=== PATIENT | female | born 1985 | race African-American/Black ===

== ENCOUNTER 2016-06-22 23:51 | Emergency (ER) | payer OTHER ==
[~2016-06-22] VITALS: Ht 157.5 cm; Wt 89.0 kg
[2016-06-23] MEDS ORDERED: AMOX875T PO (00:06)
--- NOTE | 2016-06-23 00:06 | PD ---
HPI Chief Complaint: sinus pressure Time Seen by Provider: 00:02 Travel History International Travel<30 days: No Contact w/Intl Traveler<30days: No History of Present Illness HPI Patient comes in complaining of sinus pressure and pain ongoing for over 2 weeks. Patient reports pain mainly in left maxillary sinus but having pain throughout her facial sinuses. Patient states she is occasionally productive cough with greenish phlegm. Patient states she feels congested but is not blowing anything out her nose. Patient reports subjective fevers at night. Denies any nausea, vomiting, diarrhea, abdominal pain, shortness breath, or chest pain. Patient states she's taken multiple [id number] medications with minimal to no relief of her symptoms. Denies anything making it worse. PFSH Past Medical History Anemia: Yes Arthritis: No Asthma: Yes Autoimmune Disease: No Anxiety: No Depression: No Heart Rhythm Problems: No Cancer: Yes ("RBC cancer") Cardiovascular Problems: No High Cholesterol: No Chemotherapy: Yes (Finished October 2015) Chest Pain: No Congestive Heart Failure: No COPD: No Cerebrovascular Accident: No Diabetes: No Diminished Hearing: No Endocrine: No Gastrointestinal Disorders: Yes GERD: Yes Genitourinary: No Hiatal Hernia: No Immune Disorder: No Kidney Stones: No Musculoskeletal: No Neurologic: No Psychiatric: No Reproductive: No Respiratory: Yes (asthma) Migraines: No Radiation Therapy: No Renal Failure: No Seizures: No Sickle Cell Disease: No Sleep Apnea: No Thyroid Disease: No Ulcer: No : 2 Para: 1 Miscarriage: 1 : 0 Past Surgical History Abdominal Surgery: No AICD: No Arteriovenous Shunt: No Cardiac Surgery: No Ear Surgery: No Endocrine Surgery: No Eye Surgery: No Genitourinary Surgery: No Gynecologic Surgery: No Insulin Pump: No Joint Replacement: No Oral Surgery: No Pacemaker: No Thoracic Surgery: No Social History Alcohol Use: No Tobacco Use: No Substance Use: No Allergies-Medications (Allergen,Severity, Reaction): Coded Allergies: No Known Allergies (Verified , 06/23/16) Reported Meds & Prescriptions Reported Meds & Active Scripts Active Amoxicillin 875 Mg Tab 875 Mg PO BID 10 Days Review of Systems Except as stated in HPI: all other systems reviewed are Neg Physical Exam Narrative GENERAL: Well-developed, overly nourished, in no acute distress, and non-ill appearing. SKIN: Warm and dry. HEAD: Atraumatic. Normocephalic. EYES: Pupils equal and round. EOMI. No scleral icterus. No injection or drainage. ENT: No nasal bleeding or discharge. Mucous membranes pink and moist. Tympanic membranes pearly hastings bilaterally. Posterior pharynx nonerythematous without exudate. Uvula is midline. Patient reports tenderness throughout the facial sinuses. NECK: Trachea midline. No cervical lymphadenopathy. Supple. No nuclear rigidity. CARDIOVASCULAR: Regular rate and rhythm. No murmur appreciated. RESPIRATORY: No accessory muscle use. No respiratory distress. Clear to auscultation. Breath sounds equal bilaterally. MUSCULOSKELETAL: No obvious deformities. No clubbing. No cyanosis. No edema. Full range of motion. NEUROLOGICAL: Awake and alert. No obvious cranial nerve deficits. Motor grossly within normal limits. Normal speech. PSYCHIATRIC: Appropriate mood and affect; insight and judgment normal. Data Data Last Documented VS Vital Signs Date Time Temp Pulse Resp B/P Pulse Ox O2 Delivery O2 Flow Rate FiO2 06/23/16 00:29 98.4 79 14 130/83 98 MDM Medical Decision Making Medical Screen Exam Complete: Yes Emergency Medical Condition: Yes Differential Diagnosis Upper respiratory infection, sinusitis, viral syndrome, allergies, other Narrative Course Patient looks great, non-ill appearing. The patient is tolerating fluids and is well hydrated. Appears acute sinusitis. No clinical evidence by history or evaluation to suspect meningitis and/or sepsis. There was no evidence to suggest deep abscess or cavernous sinus involvement. I discussed with the patient, diagnosis, plan of care, medications and to follow up with the patient s primary physician. The patient was instructed to return if the worsens in anyway, especially if not tolerating fluids, increased sinus pain or swelling, worsening headache, persistent fever, difficulty swallowing or breathing, or as needed. The patient agreed with plan. Patient in no obvious distress upon re-evaluation. Patient was asked if they wanted to speak to my attending, which the patient did not wish to do at this time. Any questions/concerns in reference to patient diagnosis/condition discussed and clarified prior to patient's discharge. Reinforced sheer importance of close follow up with patient's primary physician or primary care clinic. Instructed patient to return to ED immediately, if symptoms return/ worsen. Pt showed understanding of above instructions. Further instructions and recommendations were detailed in discharge paperwork. Pt ambulated without difficulty out of ED at discharge. Diagnosis Primary Impression: Sinusitis Qualified Code: J32.9 - Sinusitis, unspecified chronicity, unspecified location Referrals: Daniel Holloway MD Patient Instructions: Sinusitis (ED) Additional Instructions: Follow-up with your primary care physician and/or ENT this week for reevaluation. Take all medication as prescribed. Return to the emergency department if symptoms get worse. Med/Other Pt SpecificInfo: Prescription(s) given Scripts Amoxicillin 875 Mg Ehu240 Mg PO BID 10 Days Ref 0 Prov:Georgina Savage MD 06/23/16 Disposition: 01 DISCHARGE HOME Condition: Stable Huber Johnson Jun 23, 2016 00:06
[2016-06-23 00:29] VITALS: BP 130/83; PULSE 79; RESP 14; TEMP 98.4; O2SAT 98
== END 2016-06-23 01:11 | disposition home or self-care (01) ==
LOC: NEPB 23:51
DX: J01.90 Acute sinusitis, unspecified (principal); R05 Cough; Z86.2 Personal history of diseases of the blood and blood-forming organs and certain disorders involving the immune mechanism; Z87.09 Personal history of other diseases of the respiratory system; Z87.19 Personal history of other diseases of the digestive system
CPT/HCPCS: 99283

== ENCOUNTER 2016-10-24 11:56 | Emergency (ER) | payer MEDICAID, OTHER ==
[~2016-10-24] VITALS: Ht 160 cm; Wt 88.5 kg
[~2016-10-24 11:56] MED LIST: AMOX875T PO
[2016-10-24 11:58] VITALS: BP 152/70; PULSE 90; RESP 20; TEMP 98.4; O2SAT 100
[2016-10-24] MEDS ORDERED: CEPH-460 PO (12:20)
--- NOTE | 2016-10-24 12:20 | PD ---
HPI Chief Complaint: Complaint Time Seen by Provider: 12:18 Travel History International Travel<30 days: No Contact w/Intl Traveler<30days: No Traveled to known affect area: No History of Present Illness HPI 31-year-old female presents to the emergency department for evaluation of urinary urgency, burning, and frequency worsening of the last 2 days. Patient believes she may have a UTI. She reports no vaginal discharge or bleeding. Uncertain if she is but believes she is not. Denies any fever or chills. Mild abdominal cramping. No other symptoms to report. PFSH Past Medical History Anemia: Yes Arthritis: No Asthma: Yes Autoimmune Disease: No Anxiety: No Depression: No Heart Rhythm Problems: No Cancer: Yes ("RBC cancer") Cardiovascular Problems: No High Cholesterol: No Chemotherapy: Yes (Finished October 2015) Chest Pain: No Congestive Heart Failure: No COPD: No Cerebrovascular Accident: No Diabetes: No Diminished Hearing: No Endocrine: No Gastrointestinal Disorders: Yes GERD: Yes Genitourinary: No Hiatal Hernia: No Immune Disorder: No Kidney Stones: No Musculoskeletal: No Neurologic: No Psychiatric: No Reproductive: No Respiratory: Yes (asthma) Migraines: No Radiation Therapy: No Renal Failure: No Seizures: No Sickle Cell Disease: No Sleep Apnea: No Thyroid Disease: No Ulcer: No Tetanus Vaccination: < 5 Years ?: Not : 2 Para: 1 Miscarriage: 1 : 0 Past Surgical History Surgical History: No Previous Surgery Abdominal Surgery: No AICD: No Arteriovenous Shunt: No Cardiac Surgery: No Ear Surgery: No Endocrine Surgery: No Eye Surgery: No Genitourinary Surgery: No Gynecologic Surgery: No Insulin Pump: No Joint Replacement: No Oral Surgery: No Pacemaker: No Thoracic Surgery: No Social History Alcohol Use: No Tobacco Use: No Substance Use: No Allergies-Medications (Allergen,Severity, Reaction): Coded Allergies: No Known Allergies (Verified , 10/24/16) Reported Meds & Prescriptions Reported Meds & Active Scripts Active Keflex (Cephalexin) 500 Mg Cap 500 Mg PO Q12H 7 Days Review of Systems Except as stated in HPI: all other systems reviewed are Neg Physical Exam Narrative GENERAL: Well-nourished, well-developed email patient in no acute distress SKIN: Focused skin assessment warm/dry. HEAD: Normocephalic. EYES: No scleral icterus. No injection or drainage. NECK: Supple, trachea midline. No JVD or lymphadenopathy. CARDIOVASCULAR: Regular rate and rhythm without murmurs, gallops, or rubs. RESPIRATORY: Breath sounds equal bilaterally. No accessory muscle use. GASTROINTESTINAL: Abdomen soft, non-tender, nondistended. No guarding. No rebound tenderness. MUSCULOSKELETAL: No cyanosis, or edema. BACK: Nontender without obvious deformity. No CVA tenderness. Data Data Last Documented VS Vital Signs Date Time Temp Pulse Resp B/P Pulse Ox O2 Delivery O2 Flow Rate FiO2 10/24/16 11:58 98.4 90 20 152/70 100 Room Air Orders Urinalysis - C+S If Indicated (10/24/16 12:12) Ed Urine Pregnancytest Poc (10/24/16 12:12) Urine Culture (10/24/16 12:14) Labs Laboratory Tests Test 10/24/16 12:14 Urine Color YELLOW Urine Turbidity CLOUDY Urine pH 6.5 Urine Specific [place] 1.024 Urine Protein 100 mg/dL Urine Glucose (UA) NEG mg/dL Urine Ketones NEG mg/dL Urine Occult Blood MOD Urine Nitrite NEG Urine Bilirubin NEG Urine Urobilinogen 2.0 MG/DL Urine Leukocyte Esterase LARGE Urine RBC 38 /hpf Urine WBC /hpf Urine WBC Clumps MOD Urine Squamous Epithelial 1 /hpf Cells Urine Bacteria FEW /hpf Urine Mucus FEW /lpf Microscopic Urinalysis Comment CULTURE INDICATED MDM Medical Decision Making Medical Screen Exam Complete: Yes Emergency Medical Condition: Yes Medical Record Reviewed: Yes Differential Diagnosis Cystitis versus vaginitis versus urethritis versus PID Narrative Course 31-year-old female presents to emergency department for evaluation of urinary symptoms. Patient denies any vaginal discharge or bleeding. Patient's symptoms are consistent with UTI. Urinalysis is sent. Urine is negative. Patient will be started on Keflex by mouth. She is encouraged to follow-up with primary care provider and return immediately with any acute worsening of symptoms. Diagnosis Primary Impression: Dysuria Referrals: Primary Care Physician Patient Instructions: Dysuria (ED), General Instructions Additional Instructions: Maintain adequate oral hydration Drink 100% cranberry juice. Not cocktail Follow-up with a primary care provider Return immediately with any acute worsening symptoms Med/Other Pt SpecificInfo: Prescription(s) given Scripts Cephalexin (Keflex)500 Mg [id number] Mg PO Q12H 7 Days Ref 0 Prov:Magi Gomez 10/24/16 Disposition: 01 DISCHARGE HOME Condition: Stable Magi Gomez Oct 24, 2016 12:20
[2016-10-24 12:28] LABS: BACTERIA, URINE FEW /hpf; BLOOD, URINE MOD (NEG); COMMENT (UR) CULTURE INDICATED; CULTURE IF INDICATED CULTURE INDICATED; GLUCOSE,URINE NEG (NEG); KETONE, URINE NEG (NEG); MUCUS URINE FEW /lpf (OCC); NITRITE,URINE NEG (NEG); PH, URINE 6.5 (5.0-8.5); SQUAMOUS EPITHELIAL CELL URINE 1 /hpf (0-5); URINE COLOR YELLOW (YELLW/STRAW)
== END 2016-10-24 12:45 | disposition home or self-care (01) ==
LOC: NEPK 11:56
DX: R30.0 Dysuria (principal); R39.15 Urgency of urination; J45.909 Unspecified asthma, uncomplicated; K21.9 Gastro-esophageal reflux disease without esophagitis; D64.9 Anemia, unspecified; Z79.899 Other long term (current) drug therapy
CPT/HCPCS: 81001; 84703; 87077; 87086; 87186; 99283

== ENCOUNTER 2016-11-19 17:16 | Inpatient (IN) | payer MEDICAID ==
[~2016-11-19] VITALS: Ht 160 cm; Wt 86.4 kg
[~2016-11-19 17:16] MED LIST changes: -AMOX875T PO; +CEPH-460 PO
[2016-11-19 17:17] VITALS: BP 152/72; PULSE 85; RESP 18; TEMP 98.9; O2SAT 100
--- NOTE | 2016-11-19 17:30 | PD ---
Physical Exam Time Seen by Provider: 17:28 Narrative 31yo F c/o vaginal bleeding x 3 weeks. +abd pain and cramping. Denies fever, vomiting. Britton lightheadedness, dizziness. Feels weak. Denies . Patient seen in triage. VS reviewed. Awaiting bed placement. Data Data Last Documented VS Vital Signs Date Time Temp Pulse Resp B/P Pulse Ox O2 Delivery O2 Flow Rate FiO2 11/19/16 17:17 98.9 85 18 152/72 100 Room Air Orders Urinalysis - C+S If Indicated (11/19/16 18:51) MDM Supervised Visit with VANESSA: Inge Rivera Nov 19, 2016 17:30
[2016-11-19 19:07] LABS: BLOOD, URINE MOD (NEG); GLUCOSE,URINE NEG (NEG); KETONE, URINE NEG (NEG); NITRITE,URINE NEG (NEG); URINE COLOR YELLOW (YELLW/STRAW)
[2016-11-19 19:08] LABS: COMMENT (UR) CULT NOT INDICATED; CULTURE IF INDICATED CULT NOT INDICATED
[2016-11-19 20:11] LABS: MEAN CORPUSCULAR HGB CONC 29.6 % (32.0-36.0)
--- NOTE | 2016-11-19 20:12 | PD ---
HPI . vaginal bleed x 3 weeks Chief Complaint: Motorcycle Delivery Driver Problem/Complaint Time Seen by Provider: 20:11 Travel History International Travel<30 days: No Contact w/Intl Traveler<30days: No Traveled to known affect area: No History of Present Illness HPI 31-year-old female here with complaints of vaginal bleeding for the past 3 weeks. Patient tells me that she's been going through 7 pads a day. She says her bleeding has not subsided. She does report that she was on control pills and recently stopped those 3 days ago. She tells me that when she once she started the control pill she was bleeding more than usual. She denies any prior history of this abnormal vaginal bleeding or fibroids. She denies any chance of . She tells me that she has primary care provider located on [facility], but does not recall name and does not have OB /HEALTH PROGRAM DIRECTOR. She reports getting control pills from the health department, but does not recall the name of them. PFSH Past Medical History Anemia: Yes Arthritis: No Asthma: Yes Autoimmune Disease: No Anxiety: No Depression: No Heart Rhythm Problems: No Cancer: Yes ("RBC cancer") Cardiovascular Problems: No High Cholesterol: No Chemotherapy: Yes (Finished October 2015) Chest Pain: No Congestive Heart Failure: No COPD: No Cerebrovascular Accident: No Diabetes: No Diminished Hearing: No Endocrine: No Gastrointestinal Disorders: Yes GERD: Yes Genitourinary: No Hiatal Hernia: No Immune Disorder: No Kidney Stones: No Musculoskeletal: No Neurologic: No Psychiatric: No Reproductive: No Respiratory: Yes (asthma) Migraines: No Radiation Therapy: No Renal Failure: No Seizures: No Sickle Cell Disease: No Sleep Apnea: No Thyroid Disease: No Ulcer: No ?: Not : 2 Para: 1 Miscarriage: 1 : 0 Past Surgical History Abdominal Surgery: No AICD: No Arteriovenous Shunt: No Cardiac Surgery: No Ear Surgery: No Endocrine Surgery: No Eye Surgery: No Genitourinary Surgery: No Gynecologic Surgery: No Insulin Pump: No Joint Replacement: No Oral Surgery: No Pacemaker: No Thoracic Surgery: No Social History Alcohol Use: No Tobacco Use: No Substance Use: No Allergies-Medications (Allergen,Severity, Reaction): Coded Allergies: No Known Allergies (Verified , 11/19/16) Reported Meds & Prescriptions Reported Meds & Active Scripts Active Review of Systems General / Constitutional: No: Fever Eyes: No: Visual changes HENT: No: Headaches Cardiovascular: No: Chest Pain or Discomfort Respiratory: No: Shortness of Breath Gastrointestinal: No: Abdominal Pain Genitourinary: Positive: Pelvic Pain, Menorrhagia, Vaginal Bleeding, No: Dysuria Musculoskeletal: No: Pain Skin: No Rash Neurologic: No: Weakness Psychiatric: No: Depression Endocrine: No: Polydipsia Hematologic/Lymphatic: No: Easy Bruising Physical Exam Narrative GENERAL: AAO x 3, no acute distress, Well-nourished, well-developed patient. SKIN: Warm and dry. No visible rashes or bruising. Slight pallor to the palms of the hand HEAD: Normocephalic and atraumatic. EYES: No scleral icterus. No injection or drainage. EOM intact, PERRLA, pink conjunctiva bilaterally ENT: No nasal drainage noted. Mucous membranes pink. Airway patent. NECK: Supple, trachea midline. No JVD. No lymphadenopathy CARDIOVASCULAR: Regular rate and rhythm without murmurs, gallops, or rubs. RESPIRATORY: Breath sounds equal bilaterally. No accessory muscle use. No rhonchi or rales. GASTROINTESTINAL: Abdomen soft, non-tender, nondistended. PELVIC: Allison BELL present: + blooding in vaginal canal no vaginal laceration, cervical mass or gross abn. small clot at cervical os. EXTREMITIES: No cyanosis or edema. BACK: No obvious deformity. No CVA tenderness. NEURO: CN II-12 intact, home worker strength normal b/l, UE and LE 5/5, no focal deficits PSYCH: AAO x 3, normal affect. Data Data Last Documented VS Vital Signs Date Time Temp Pulse Resp B/P Pulse Ox O2 Delivery O2 Flow Rate FiO2 11/19/16 17:17 98.9 85 18 152/72 100 Room Air Orders Urinalysis - C+S If Indicated (11/19/16 18:51) Complete Blood Count With Diff (11/19/16 20:10) Basic Metabolic Panel (Bmp) (11/19/16 20:10) Ed Urine Pregnancytest Poc (11/19/16 20:10) Type And Screen (11/19/16 22:06) Red Blood Cells (Rbc) (11/19/16 22:06) Blood Product Administration .UPON TRANSFUSION (11/19/16 22:06) Sodium Chlor 0.9% 250 Ml Inj (Ns 250 Ml (11/19/16 22:15) Vital Signs (Adult) Q4H (11/19/16 22:29) Activity Oob Ad Lily (11/19/16 22:29) Roller Turner / Telemetry .CONTINUOUS (11/19/16 22:29) Diet Heart Healthy (11/20/16 Breakfast) Sodium Chloride 0.9% Flush (Ns Flush) (11/19/16 22:30) Sodium Chloride 0.9% Flush (Ns Flush) (11/20/16 09:00) Case Management Consult (11/19/16 22:29) Naloxone Inj (Narcan Inj) (11/19/16 22:30) Admit Order (Ed Use Only) (11/19/16 22:30) Labs Laboratory Tests Test 11/19/16 11/19/16 11/19/16 18:50 21:25 22:21 Urine Color YELLOW Urine Turbidity CLEAR Urine pH 6.0 Urine Specific [place] 1.014 Urine Protein 30 mg/dL Urine Glucose (UA) NEG mg/dL Urine Ketones NEG mg/dL Urine Occult Blood MOD Urine Nitrite NEG Urine Bilirubin NEG Urine Urobilinogen LESS THAN 2.0 MG/DL Urine Leukocyte Esterase SMALL Urine RBC /hpf Urine WBC 4 /hpf Urine Amorphous Sediment RARE Microscopic Urinalysis Comment CULT NOT INDICATED White Blood Count 12.5 TH/MM3 Red Blood Count 3.16 MIL/MM3 Hemoglobin 5.6 GM/DL Hematocrit 18.9 % Mean Corpuscular Volume 59.8 FL Mean Corpuscular Hemoglobin 17.7 PG Mean Corpuscular Hemoglobin 29.6 % Concent Red Cell Distribution Width 19.0 % Platelet Count 477 TH/MM3 Mean Platelet Volume 8.1 FL Neutrophils (%) (Auto) 64.8 % Lymphocytes (%) (Auto) 27.7 % Monocytes (%) (Auto) 6.0 % Eosinophils (%) (Auto) 0.6 % Basophils (%) (Auto) 0.9 % Neutrophils # (Auto) 8.1 TH/MM3 Lymphocytes # (Auto) 3.5 TH/MM3 Monocytes # (Auto) 0.7 TH/MM3 Eosinophils # (Auto) 0.1 TH/MM3 Basophils # (Auto) 0.1 TH/MM3 CBC Comment AUTO DIFF Differential Comment AUTO DIFF CONFIRMED Platelet Estimate HIGH Platelet Morphology Comment NORMAL Ovalocytes 1+ Stomatocytes 1+ Sodium Level 137 MEQ/L Potassium Level 3.5 MEQ/L Chloride Level 105 MEQ/L Carbon Dioxide Level 26.8 MEQ/L Anion Gap 5 MEQ/L Blood Urea Nitrogen 9 MG/DL Creatinine 0.75 MG/DL Estimat Glomerular Filtration 108 ML/MIN Rate Random Glucose 75 MG/DL Calcium Level 7.9 MG/DL Blood Type B POSITIVE Antibody Screen NEGATIVE Crossmatch Leukocyte-Reduced Red Blood Cells Blood Bank Comment MDM Medical Decision Making Medical Screen Exam Complete: Yes Emergency Medical Condition: Yes Medical Record Reviewed: Yes Differential Diagnosis Menorrhagia, iron deficiency anemia, dysfunctional uterine bleeding, Narrative Course 31-year-old female here with complaints of heavy menstrual cycle. There are no gross abnormalities on examination, except for some slight pallor of the palms of the hands. Labs have been ordered. She has no chest pain, shortness of breath or fatigue. Her last hemoglobin in the computer was dated December 2015 and was at 9.8. Per old she did require transfusion of blood products in the past as well as iron infusion. She has had heavy menses in the past as well. Case has been discussed with attending Dr. Lyles, who will determine patient's disposition. Scripts Norgestimate-Ethinyl Estradiol (Ortho-Cyclen)0.25-35 mg-Mcg Tab1 Tab PO DAILY # 1 PACK Ref 3 Prov:Shanna Deleon MD, R3 11/20/16 Condition: Stable Citlali Sanchez Nov 19, 2016 20:12
[2016-11-19 21:45] LABS: AUTOMATED NEUTROPHIL # 8.1 TH/MM3 (1.8-7.7); BASOPHIL # 0.1 TH/MM3 (0-0.2); BASOPHIL % 0.9 % (0.0-2.0); EOSINOPHIL # 0.1 TH/MM3 (0-0.4); EOSINOPHIL % 0.6 % (0.0-4.0); LYMPH % 27.7 % (9.0-44.0); LYMPHOCYTE # 3.5 TH/MM3 (1.0-4.8); MEAN CELL VOLUME 59.8 FL (80.0-100.0); MEAN CORPUSCULAR HEMOGLOBIN 17.7 PG (27.0-34.0); NEUT % 64.8 % (16.0-70.0); PLATELET COUNT 477 TH/MM3 (150-450); RED BLOOD COUNT 3.16 MIL/MM3 (4.00-5.30); WHITE BLOOD COUNT 12.5 TH/MM3 (4.0-11.0)
[2016-11-19 21:59] LABS: HEMO FLAGS AUTO DIFF
[2016-11-19 22:00] LABS: HEMATOCRIT 18.9 % (35.0-46.0)
[2016-11-19 22:02] LABS: BICARBONATE 26.8 MEQ/L (21.0-32.0); POTASSIUM 3.5 MEQ/L (3.5-5.1)
[2016-11-19] MEDS ORDERED: SODIUM CHLOR 0.9% 250 ML INJ 250 ML IV ONE (22:15)
[2016-11-19 22:22] LABS: OVALOCYTES 1+ (NORMAL); PLATELET ESTIMATE SMEAR HIGH (NORMAL); PLATELET MORPHOLOGY NORMAL (NORMAL); SCAN/DIFF AUTO DIFF CONFIRMED; STOMATOCYTES 1+ (NORMAL)
[2016-11-19] MEDS ORDERED: NALOXONE HCL 0.4 MG/ML AMP IV PRN (22:30)
[2016-11-19] MEDS ORDERED: SODIUM CHLORIDE 0.9% FLUSH 10 ML FLUSH IV FLUSH PRN (22:30)
--- NOTE | 2016-11-19 22:30 | PD ---
Data Data Last Documented VS Vital Signs Date Time Temp Pulse Resp B/P Pulse Ox O2 Delivery O2 Flow Rate FiO2 11/19/16 17:17 98.9 85 18 152/72 100 Room Air Orders Urinalysis - C+S If Indicated (11/19/16 18:51) Complete Blood Count With Diff (11/19/16 20:10) Basic Metabolic Panel (Bmp) (11/19/16 20:10) Ed Urine Pregnancytest Poc (11/19/16 20:10) Type And Screen (11/19/16 22:06) Red Blood Cells (Rbc) (11/19/16 22:06) Blood Product Administration .UPON TRANSFUSION (11/19/16 22:06) Sodium Chlor 0.9% 250 Ml Inj (Ns 250 Ml (11/19/16 22:15) Labs Laboratory Tests Test 11/19/16 11/19/16 18:50 21:25 Urine Color YELLOW Urine Turbidity CLEAR Urine pH 6.0 Urine Specific [place] 1.014 Urine Protein 30 mg/dL Urine Glucose (UA) NEG mg/dL Urine Ketones NEG mg/dL Urine Occult Blood MOD Urine Nitrite NEG Urine Bilirubin NEG Urine Urobilinogen LESS THAN 2.0 MG/DL Urine Leukocyte Esterase SMALL Urine RBC /hpf Urine WBC 4 /hpf Urine Amorphous Sediment RARE Microscopic Urinalysis Comment CULT NOT INDICATED White Blood Count 12.5 TH/MM3 Red Blood Count 3.16 MIL/MM3 Hemoglobin 5.6 GM/DL Hematocrit 18.9 % Mean Corpuscular Volume 59.8 FL Mean Corpuscular Hemoglobin 17.7 PG Mean Corpuscular Hemoglobin 29.6 % Concent Red Cell Distribution Width 19.0 % Platelet Count 477 TH/MM3 Mean Platelet Volume 8.1 FL Neutrophils (%) (Auto) 64.8 % Lymphocytes (%) (Auto) 27.7 % Monocytes (%) (Auto) 6.0 % Eosinophils (%) (Auto) 0.6 % Basophils (%) (Auto) 0.9 % Neutrophils # (Auto) 8.1 TH/MM3 Lymphocytes # (Auto) 3.5 TH/MM3 Monocytes # (Auto) 0.7 TH/MM3 Eosinophils # (Auto) 0.1 TH/MM3 Basophils # (Auto) 0.1 TH/MM3 CBC Comment AUTO DIFF Differential Comment AUTO DIFF CONFIRMED Platelet Estimate HIGH Platelet Morphology Comment NORMAL Ovalocytes 1+ Stomatocytes 1+ Sodium Level 137 MEQ/L Potassium Level 3.5 MEQ/L Chloride Level 105 MEQ/L Carbon Dioxide Level 26.8 MEQ/L Anion Gap 5 MEQ/L Blood Urea Nitrogen 9 MG/DL Creatinine 0.75 MG/DL Estimat Glomerular Filtration 108 ML/MIN Rate Random Glucose 75 MG/DL Calcium Level 7.9 MG/DL MDM Supervised Visit with VANESSA: Yes Narrative Course I, Dr. Lyles, have reviewed the advance practice practitioner's documentation and am in agreement, met with the patient face to face, made the diagnosis, and the medical decision making was done by me. See her note for further details. Briefly this is a 31-year-old female with history of myeloma in remission followed by Stacey, here for evaluation of heavy vaginal bleeding for the last 3 weeks. Patient was initially evaluated by my nurse practitioner Citlali Sanchez who performed pelvic exam and noticed a moderate amount of blood in vaginal vault coming from the cervical os. No intravaginal lacerations. No cervical masses. Patient is hemodynamically stable. She states that she felt tired yesterday. She is denying chest pain, shortness of breath, or lightheadedness today. She was made aware of her H&H of 5.6/18. Stool is heme negative and brown. She will be given 2 units of PRBCs I will be admitted for further treatment and evaluation of anemia and menorrhagia. Case discussed with hospitalist Dr. Wild who will admit the patient to her service. Diagnosis Primary Impression: Anemia Qualified Code: D64.9 - Anemia, unspecified type Additional Impression: Menorrhagia Qualified Code: N92.1 - Menorrhagia with irregular cycle Admitting Information Admitting Physician Requests: Admit Brice Lyles MD Nov 19, 2016 22:30
--- NOTE | 2016-11-19 22:52 | HHI.HP ---
[facility] Service [facility] Primary Care Physician No Primary Care Physician Admission Diagnosis anemia, menorrhagia Diagnoses: Travel History International Travel<30 Days: No Contact w/Intl Traveler <30 Da: No Traveled to Known Affected Are: No History of Present Illness short of breath but has asthma too very tired bleeding 3 weeks straight ususally 2x a month, but only 7 days each time cant get out of bed saturday no chest pain no palpitations has severe headaches white foam throwing up haven not been able to eat, literally been sleeping no black stool, no red color stool no constipation Review of Systems Except as stated in HPI: all other systems reviewed are Neg Past Family Social History Past Medical History asthma multiple myeloma? - had 6 rounds of chemo, finished august last year, was told cancer free Past Surgical History none Allergies: Coded Allergies: No Known Allergies (Verified , 11/19/16) Family History grandma both sides- diabetes maternal grandma- neck tumor - not sure if cancer; htn Social History denies smoking/ alcohol abuse/ drug abuse Physical Exam Vital Signs Vital Signs Date Time Temp Pulse Resp B/P Pulse Ox O2 Delivery O2 Flow Rate FiO2 11/19/16 17:17 98.9 85 18 152/72 100 Room Air Physical Exam GENERAL: This is a well-nourished, well-developed patient, in no apparent distress. SKIN: No rashes, ecchymoses or lesions. Cool and dry. HEAD: Atraumatic. Normocephalic. No temporal or scalp tenderness. EYES: Pupils equal round and reactive. Extraocular motions intact. No scleral icterus. No injection or drainage. ENT: Nose without bleeding, purulent drainage or septal hematoma. Throat without erythema, tonsillar hypertrophy or exudate. Uvula midline. Airway patent. NECK: Trachea midline. No JVD or lymphadenopathy. Supple, nontender, no meningeal signs. CARDIOVASCULAR: Regular rate and rhythm without murmurs, gallops, or rubs. RESPIRATORY: Clear to auscultation. Breath sounds equal bilaterally. No wheezes , rales, or rhonchi. GASTROINTESTINAL: Abdomen soft, non-tender, nondistended. No hepato-splenomegaly , or palpable masses. No guarding. MUSCULOSKELETAL: Extremities without clubbing, cyanosis, or edema. No joint tenderness, effusion, or edema noted. No calf tenderness. Negative Homans sign bilaterally. NEUROLOGICAL: Awake and alert. Cranial nerves II through XII intact. Motor and sensory grossly within normal limits. Five out of 5 muscle strength in all muscle groups. Normal speech. Laboratory Laboratory Tests Test 11/19/16 11/19/16 18:50 21:25 Urine Color YELLOW Urine Turbidity CLEAR Urine pH 6.0 Urine Specific [place] 1.014 Urine Protein 30 Urine Glucose (UA) NEG Urine Ketones NEG Urine Occult Blood MOD Urine Nitrite NEG Urine Bilirubin NEG Urine Urobilinogen LESS THAN 2.0 Urine Leukocyte Esterase SMALL Urine RBC Urine WBC 4 Urine Amorphous Sediment RARE Microscopic Urinalysis Comment CULT NOT INDICATED White Blood Count 12.5 Red Blood Count 3.16 Hemoglobin 5.6 Hematocrit 18.9 Mean Corpuscular Volume 59.8 Mean Corpuscular Hemoglobin 17.7 Mean Corpuscular Hemoglobin 29.6 Concent Red Cell Distribution Width 19.0 Platelet Count 477 Mean Platelet Volume 8.1 Neutrophils (%) (Auto) 64.8 Lymphocytes (%) (Auto) 27.7 Monocytes (%) (Auto) 6.0 Eosinophils (%) (Auto) 0.6 Basophils (%) (Auto) 0.9 Neutrophils # (Auto) 8.1 Lymphocytes # (Auto) 3.5 Monocytes # (Auto) 0.7 Eosinophils # (Auto) 0.1 Basophils # (Auto) 0.1 CBC Comment AUTO DIFF Differential Comment AUTO DIFF CONFIRMED Platelet Estimate HIGH Platelet Morphology Comment NORMAL Ovalocytes 1+ Stomatocytes 1+ Sodium Level 137 Potassium Level 3.5 Chloride Level 105 Carbon Dioxide Level 26.8 Anion Gap 5 Blood Urea Nitrogen 9 Creatinine 0.75 Estimat Glomerular Filtration 108 Rate Random Glucose 75 Calcium Level 7.9 Result Diagram: 11/19/16212411/19/162124 Assessment and Plan Assessment and Plan Impression: Dysfunctional uterine bleeding Symptomatic anemiasecondary to acute blood loss Acute blood loss anemia Plan: 2 units of PRBC transfusion. CHRONIC MANAGER consult. We'll follow CBC and repeat. DVT prophylaxiswith SCD. Discussed Condition With Patient, ER physician Physician Certification 2 Midnight Certification Type: Admission for Inpatient Services Order for Inpatient Services The services are ordered in accordance with Medicare regulations or non- Medicare payer requirements, as applicable. In the case of services not specified as inpatient-only, they are appropriately provided as inpatient services in accordance with the 2-midnight benchmark. Estimated LOS (days): 2 days is the estimated time the patient will need to remain in the hospital, assuming treatment plan goals are met and no additional complications. Post-Hospital Plan: Home Rik Wild MD Nov 19, 2016 22:52
[2016-11-20] VITALS (11 sets, daily range): BP systolic 116–179; BP diastolic 59–90; PULSE 74–105; RESP 16–19; TEMP 96.7–99.9; O2SAT 98–100
--- NOTE | 2016-11-20 00:35 | PD.CONS ---
HPI Chief Complaint Feeling weakness during fatigue Date Seen: Nov 20, 2016 Travel History International Travel<30 Days: No Contact w/Intl Traveler<30Days: No Known Affected Area: No History of Present Illness HPI Patient is 31-year-old black female para 1 whose and bleeding for 3 weeks vaginally. She states that her menses just started what was supposed to be just never stopped kept Going. She try to start control pills about 3 or 4 days and this bleeding they didn't help and she said it made it worse she bled heavier, she's been having large blood clots and heavy bleeding tonight is bleeding has slowed down somewhat. She states that she usually has very heavy periods and that they are irregular, in 2013 she was admitted for the same problem heavy bleeding received blood transfusion. Her test is negative tonight. And when asked about the she said " yes and no' if she wanted to get again Para: 1 : 1 History Past Medical History Narrative Medical History of abnormal periods and dysfunctional bleeding Obstetric History Obstetric History One vaginal delivery 17 years ago Social History Alcohol Use: No Tobacco Use: No Substance Abuse: No Allergies-Medications (Allergen,Severity, Reaction): Coded Allergies: No Known Allergies (Verified , 11/19/16) Home Meds Discontinued Scripts Cephalexin (Keflex)500 Mg Tdi620 Mg PO Q12H 7 Days Ref 0 Prov:Magi Gomez 10/24/16 Review of Systems General / Constitutional: No: Fever, Weight Gain, Chills, Other Eyes: No: Diploplia, Blurred Vision, Visual changes, Pain, Photophobia HENT: No: Headaches, Vertigo, Lightheadedness Cardiovascular: No: Irregular Rhythm, Chest Pain or Discomfort, Palpitations, Tachycardia, Syncope, Varicosities, Edema, Cyanosis Respiratory: No: Cough, Short of Breath, Other Gastrointestinal: No: Nausea, Vomiting, Diarrhea Genitourinary: Vaginal Bleeding, No: Decreased Urinary Output, Oliguria Musculoskeletal: No: Limited ROM, Weakness, Cramping, Edema, Pain Skin: No Rash, No Itching, No Dryness, No Lumps, No Change in Pigmentation, No Change in Nails, No Alopecia, No Lesions Neurologic: No: Weakness, Dizziness, Syncope, Focal Abnormalities, Coordination Problem, Headache, Slurred Speech, Seizures Psychiatric: No: Depression, Suicidal Ideations, Homicidal Ideation Endocrine: No: Heat Intolerance, Cold Intolerance, Polydipsia, Polyuria, Other Physical Exam Vital Signs Date Time Temp Pulse Resp B/P Pulse Ox O2 Delivery O2 Flow Rate FiO2 11/20/16 00:15 98.9 105 18 163/90 100 Room Air 11/19/16 17:17 98.9 85 18 152/72 100 Room Air Narrative GENERAL: Well-nourished, well-developed patient. SKIN: Warm and dry. HEAD: Normocephalic and atraumatic. EYES: No scleral icterus. No injection or drainage. ENT: No nasal drainage noted. Mucous membranes pink. Airway patent. NECK: Supple, trachea midline. No JVD. CARDIOVASCULAR: Regular rate and rhythm without murmurs, gallops, or rubs. RESPIRATORY: Breath sounds equal bilaterally. No accessory muscle use. BREASTS: Bilateral exam showed no masses , no retractions, no nipple discharge. ABDOMEN/GI: Abdomen soft, non-tender, bowel sounds present, no rebound, no guarding GENITOURINARY: External Genitalia: intact and normal in appearance lite to moderate amount of blood in the vaginal vault and the on the perineum. No active bleeding Cervix: [-Closed] Uterus is retroflexed globular but minimally enlarged no adnexal masses Rectal exam deferred ] EXTREMITIES: No cyanosis or edema. BACK: Nontender without obvious deformity. No CVA tenderness. NEUROLOGICAL: Awake and alert. Motor and sensory grossly within normal limits. Five out of 5 muscle strength in all muscle groups. Normal speech. Data Data Orders Urinalysis - C+S If Indicated (11/19/16 18:51) Complete Blood Count With Diff (11/19/16 20:10) Basic Metabolic Panel (Bmp) (11/19/16 20:10) Ed Urine Pregnancytest Poc (11/19/16 20:10) Type And Screen (11/19/16 22:06) Red Blood Cells (Rbc) (11/19/16 22:06) Blood Product Administration .UPON TRANSFUSION (11/19/16 22:06) Sodium Chlor 0.9% 250 Ml Inj (Ns 250 Ml (11/19/16 22:15) Vital Signs (Adult) Q4H (11/19/16 22:29) Activity Oob Ad Lily (11/19/16 22:29) Building Stonecutter / Telemetry .CONTINUOUS (11/19/16 22:29) Diet Heart Healthy (11/20/16 Breakfast) Sodium Chloride 0.9% Flush (Ns Flush) (11/19/16 22:30) Sodium Chloride 0.9% Flush (Ns Flush) (11/20/16 09:00) Complete Blood Count With Diff (11/20/16 06:00) Case Management Consult (11/19/16 22:29) Naloxone Inj (Narcan Inj) (11/19/16 22:30) Admit Order (Ed Use Only) (11/19/16 22:30) Consult Gynecology (11/19/16 ) Admit To Inpatient (11/19/16 ) Inpatient Certification (11/19/16 ) (Hub Use Only)Inp Phy Cons/Ref (11/19/16 ) Us Pelvis Comp Drums Teacher/Non-Preg (11/20/16 ) Labs Laboratory Tests Test 11/19/16 11/19/16 11/19/16 18:50 21:25 22:21 Urine Color YELLOW Urine Turbidity CLEAR Urine pH 6.0 Urine Specific [place] 1.014 Urine Protein 30 Urine Glucose (UA) NEG Urine Ketones NEG Urine Occult Blood MOD Urine Nitrite NEG Urine Bilirubin NEG Urine Urobilinogen LESS THAN 2.0 Urine Leukocyte Esterase SMALL Urine RBC Urine WBC 4 Urine Amorphous Sediment RARE Microscopic Urinalysis Comment CULT NOT INDICATED White Blood Count 12.5 Red Blood Count 3.16 Hemoglobin 5.6 Hematocrit 18.9 Mean Corpuscular Volume 59.8 Mean Corpuscular Hemoglobin 17.7 Mean Corpuscular Hemoglobin 29.6 Concent Red Cell Distribution Width 19.0 Platelet Count 477 Mean Platelet Volume 8.1 Neutrophils (%) (Auto) 64.8 Lymphocytes (%) (Auto) 27.7 Monocytes (%) (Auto) 6.0 Eosinophils (%) (Auto) 0.6 Basophils (%) (Auto) 0.9 Neutrophils # (Auto) 8.1 Lymphocytes # (Auto) 3.5 Monocytes # (Auto) 0.7 Eosinophils # (Auto) 0.1 Basophils # (Auto) 0.1 CBC Comment AUTO DIFF Differential Comment AUTO DIFF CONFIRMED Platelet Estimate HIGH Platelet Morphology Comment NORMAL Ovalocytes 1+ Stomatocytes 1+ Sodium Level 137 Potassium Level 3.5 Chloride Level 105 Carbon Dioxide Level 26.8 Anion Gap 5 Blood Urea Nitrogen 9 Creatinine 0.75 Estimat Glomerular Filtration 108 Rate Random Glucose 75 Calcium Level 7.9 Blood Type B POSITIVE Antibody Screen NEGATIVE Crossmatch Leukocyte-Reduced Red Blood Cells Blood Bank Comment MDM Interpretation(s) Patient is 31-year-old black female para 1 with a history of dysfunctional uterine bleeding menometrorrhagia. This event of metromenorrhagia's lead to a hemoglobin of 5 and hematocrit of 18 and she is receiving 2 units of blood tonight on the medicine service. Patient is alert and oriented and is a pleasant to talk to she would like. Her periods under control with control pills of possible probably the pill that she was trying to use it was from the health department and was a low-dose pill she thinks that iron minutes was probably Loestrin. However what she probably needs is a high dose pill such as Ovral or Demulen 1 / 50 to provide more estrogen and a more progestational effect hold her uterus in check Plan Plan to give the patient at least 1 dose of IV Premarin possibly 2 and a prescription for a 50 microgram control pills such demulen 1/50- or ovral , plan pelvic ultrasound Admitting diagnosis: anemia, menorrhagia Diagnosis: dysfunctional uterine bleeding , anemia Condition: Stable Neymar Easley II, MD Nov 20, 2016 00:35
[2016-11-20] MEDS ORDERED: ESTROGENS CONJUGATED 25 MG/5 ML VIAL IV PUSH ONE (00:45)
[2016-11-20] MEDS ORDERED: ESTROGENS CONJUGATED 25 MG/5 ML VIAL IV PRN (08:00)
[2016-11-20] MEDS ORDERED: ORTH0.25 PO (08:06)
[2016-11-20] MEDS ORDERED: SODIUM CHLORIDE 0.9% FLUSH 10 ML FLUSH IV FLUSH SCH (09:00)
--- NOTE | 2016-11-20 09:39 | HHI.PR ---
Subjective Remarks Follow-up for symptomatic anemia and menorrhagia Patient stated that her bleeding has decreased. She stated that she hasn't had any blood clots and she was admitted. Patient was transfused with 2 PRBC. Still pending posttransfusion H&H. She stated that her shortness of breathing resolve the blood. She stated that her headache has also resolved after getting blood. Patient stated that she had this same exact issues in 2013. Patient's mother and niece are at the bedside. Objective Vitals Vital Signs Date Time Temp Pulse Resp B/P Pulse Ox O2 Delivery O2 Flow Rate FiO2 11/20/16 08:00 97.2 88 16 130/74 99 11/20/16 04:01 97.8 75 16 146/63 98 11/20/16 04:00 78 11/20/16 03:38 97.6 81 16 139/83 100 11/20/16 01:30 90 11/20/16 01:30 98.8 93 19 179/82 100 11/20/16 00:30 98.9 92 18 138/69 100 Room Air 11/20/16 00:15 98.9 98 18 139/67 100 Room Air 11/19/16 17:17 98.9 85 18 152/72 100 Room Air Result Diagram: 11/19/16212411/19/162124 Objective Remarks GENERAL: in NAD CARDIOVASCULAR: Regular rate and rhythm without murmurs, gallops, or rubs. RESPIRATORY: Breath sounds equal bilaterally. No accessory muscle use. GASTROINTESTINAL: Abdomen soft, non-tender, nondistended. MUSCULOSKELETAL: No cyanosis, or edema. BACK: Nontender without obvious deformity. No CVA tenderness. Medications and IVs Current Medications Sodium Chloride (NS 250 ml Inj) 250 ml @ 15 mls/hr ONCE ONCE IV Last administered on 11/20/16t 00:15; Start 11/19/16 at 22:15; Stop 11/20/16 at 14:54 Sodium Chloride (NS Flush) 2 ml UNSCH PRN IV FLUSH FLUSH AFTER USING IV ACCESS ; Start 11/19/16 at 22:30 Sodium Chloride (NS Flush) 2 ml BID IV FLUSH ; Start 11/20/16 at 09:00 Naloxone HCl (Narcan Inj) 0.4 mg UNSCH PRN IV SEE LABEL COMMENTS; Start at 22:30 Estrogens Conjugated (Premarin Inj) 25 mg ONCE ONCE IV PUSH Last administered on 11/20/16t 01:51; Start 11/20/16 at 00:45; Stop 11/20/16 at 00:48; Status DC Estrogens Conjugated (Premarin Inj) 25 mg UNSCH X1 PRN IV SEE DOSE INSTRUCTIONS ; Start 11/20/16 at 08:00; Stop 11/20/16 at 13:00 A/P Assessment and Plan 31-year-old female who presents with dysfunctional uterine bleeding with shortness of breathing and headache who was found to be severely anemic Symptomatic anemia -Transfuse 2 PRBCs pending posttransfusion H&H. -Symptomatically patient has improved. Dysfunctional uterine bleeding -OPHTHALMIC LENS INSPECTOR consulted. Per OPHTHALMIC LENS INSPECTOR plan to give the patient at least 1 dose of IV Premarin possibly 2 and a prescription for a 50 microgram control pills such demulen - or ovral, plan pelvic ultrasound DVT prophylaxiswith Emani [place] MD Nov 20, 2016 09:39 DVT prophylaxiswith Emani [place] MD Nov 20, 2016 09:39
--- NOTE | 2016-11-20 13:52 | RADRPT ---
EXAM DATE/TIME: 11/20/2016 09:42 [facility] COMPARISON: US PELVIS COMP W/TRANSVAGINAL, November 04, 2013, 10:14. INDICATIONS : Persistent heavy bleeding for three weeks. MEDICAL HISTORY : Asthma. GERD. Anemia. RBC cancer. SURGICAL HISTORY : Chemotherapy. ENCOUNTER: Initial ACUITY: 3 weeks PAIN SCORE: 6/10 LOCATION: Bilateral pelvis MEASUREMENTS: UTERUS: 8.6 x 5.3 x 4.4 cm ENDOMETRIAL STRIPE: 11 mm RIGHT OVARY: 3.0 x 2.6 x 2.0 cm LEFT OVARY: 2.4 x 2.2 x 2.4 cm FINDINGS: UTERUS: The myometrium has homogeneous echotexture without mass. Nabothian cysts are seen in the cervix. RIGHT OVARY: Ovary contains no mass or significant cystic lesion. LEFT OVARY: Ovary contains no mass or significant cystic lesion. MISCELLANEOUS: There is mild free fluid in the cul-de-sac. CONCLUSION: 1. The endometrium is within normal the patient's age. 2. Multiple cysts at the cervix presumed to represent nabothian cysts. 3. Mild free fluid in the cul-de-sac. Barrett Garcia MD on November 20, 2016 at 13:45 Board Certified Radiologist. This report was verified electronically.
[2016-11-20 14:33] LABS: HEMATOCRIT 29.3 % (35.0-46.0); MEAN CELL VOLUME 66.7 FL (80.0-100.0); MEAN CORPUSCULAR HEMOGLOBIN 20.5 PG (27.0-34.0); MEAN CORPUSCULAR HGB CONC 30.7 % (32.0-36.0); PLATELET COUNT 480 TH/MM3 (150-450); RED BLOOD COUNT 4.39 MIL/MM3 (4.00-5.30); RED CELL DISTRIBUTION WIDTH 25.2 % (11.6-17.2); WHITE BLOOD COUNT 10.5 TH/MM3 (4.0-11.0)
[2016-11-20 14:38] LABS: REVIEW FLAG FINAL
[2016-11-20] MEDS ORDERED: FERR325T8 PO (15:17)
--- NOTE | 2016-11-20 15:17 | HHI.DCPOC ---
Discharge Care Plan Diagnosis: (1) Menorrhagia (2) Anemia Goals to Promote Your Health * To prevent worsening of your condition and complications * To maintain your health at the optimal level Directions to Meet Your Goals Take your medications as prescribed Follow your dietary instruction Follow activity as directed Keep your appointments as scheduled Take your immunizations and boosters as scheduled If your symptoms worsen call your PCP, if no PCP go to Urgent Care Center or Emergency Room Smoking is Dangerous to Your Health. Avoid second hand smoke Call the 24-hour hour crisis hotline for domestic abuse at Emani Mcintosh MD Nov 20, 2016 15:17
--- NOTE | 2016-11-20 15:18 | HHI.DS ---
Discharge Summary Admission Date Nov 19, 2016 at 22:31 Admitting Diagnosis anemia, menorrhagia Brief History - From Admission short of breath but has asthma too very tired bleeding 3 weeks straight ususally 2x a month, but only 7 days each time cant get out of bed saturday no chest pain no palpitations has severe headaches white foam throwing up haven not been able to eat, literally been sleeping no black stool, no red color stool no constipation CBC/BMP: 11/20/16 1411 11/19/165 Significant Findings Laboratory Tests Test 11/19/16 11/19/16 11/20/16 18:50 21:25 14:11 Urine Protein 30 mg/dL (NEG-TRACE) Urine Occult Blood MOD (NEG) Urine Leukocyte Esterase SMALL (NEG) White Blood Count 12.5 TH/MM3 (4.0-11.0) Red Blood Count 3.16 MIL/MM3 (4.00-5.30) Hemoglobin 5.6 GM/DL 9.0 GM/DL (11.6-15.3) (11.6-15.3) Hematocrit 18.9 % 29.3 % (35.0-46.0) (35.0-46.0) Mean Corpuscular Volume 59.8 FL 66.7 FL (80.0-100.0) (80.0-100.0) Mean Corpuscular Hemoglobin 17.7 PG 20.5 PG (27.0-34.0) (27.0-34.0) Mean Corpuscular Hemoglobin 29.6 % 30.7 % Concent (32.0-36.0) (32.0-36.0) Red Cell Distribution Width 19.0 % 25.2 % (11.6-17.2) (11.6-17.2) Platelet Count 477 TH/MM3 480 TH/MM3 (150-450) (150-450) Neutrophils # (Auto) 8.1 TH/MM3 (1.8-7.7) Platelet Estimate HIGH (NORMAL) Ovalocytes 1+ (NORMAL) Stomatocytes 1+ (NORMAL) Calcium Level 7.9 MG/DL (8.5-10.1) PE at Discharge GENERAL: in NAD CARDIOVASCULAR: Regular rate and rhythm without murmurs, gallops, or rubs. RESPIRATORY: Breath sounds equal bilaterally. No accessory muscle use. GASTROINTESTINAL: Abdomen soft, non-tender, nondistended. MUSCULOSKELETAL: No cyanosis, or edema. BACK: Nontender without obvious deformity. No CVA tenderness. Pt Condition on Discharge: Good Discharge Disposition: Discharge Home Discharge Instructions DIET: Follow Instructions for: As Tolerated, No Restrictions Activities you can perform: Regular-No Restrictions Emani Mcintosh MD Nov 20, 2016 15:18
== END 2016-11-20 17:32 | disposition home or self-care (01) | DRG 760 ==
LOC: NEPD 17:16 → NEDA 22:31 → HOCA 11-20 01:20
PROVIDERS: ADMIT Family Medicine; ATTEND Family Medicine
PROC: 30233N1 Transfusion of Nonautologous Red Blood Cells into Peripheral Vein, Percutaneous Approach (ICD-10-PCS; principal; 2016-11-19)
DX: N92.1 Excessive and frequent menstruation with irregular cycle (principal); C90.01 Multiple myeloma in remission; D62 Acute posthemorrhagic anemia; J45.909 Unspecified asthma, uncomplicated; K21.9 Gastro-esophageal reflux disease without esophagitis; N93.8 Other specified abnormal uterine and vaginal bleeding; R51 Headache
CPT/HCPCS: 36430; 76830; 76856; 80048; 81001; 84703; 85025; 85027; 86850; 86900; 86901; 86920; J1410; J7050; P9016

== ENCOUNTER 2017-03-14 16:44 | Emergency (ER) | payer MEDICAID ==
[~2017-03-14] VITALS: Ht 160 cm; Wt 89.0 kg
[~2017-03-14 16:44] MED LIST changes: -CEPH-460 PO; +FERR325T18 PO; +ORTH0.25 PO
[2017-03-14 16:47] VITALS: BP 175/80; PULSE 97; RESP 16; TEMP 97.5; O2SAT 99
--- NOTE | 2017-03-14 17:35 | PD ---
HPI Chief Complaint: Back/ Neck Pain or Injury Time Seen by Provider: 17:05 Travel History International Travel<30 days: No Contact w/Intl Traveler<30days: No Traveled to known affect area: No History of Present Illness HPI 31-year-old female presents to the emergency room for evaluation of right flank pain and right low back pain for the past 2 weeks. She denies trauma or injury. 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 She has been taking Motrin without relief in symptoms. She denies radiation of pain. Reports occasional right lower extremity paresthesias. She denies dysuria, urgency, and frequency. Denies saddle anesthesia or loss of bowel or bladder control. Denies weight loss, fever, chills, night sweats, nausea, vomiting, or IV drug use. Denies chronic medical conditions or daily medications. Last menstrual cycle was 4 months ago but patient states she is normally irregular. PFSH Past Medical History Anemia: Yes Arthritis: No Asthma: Yes Autoimmune Disease: No Anxiety: No Depression: No Heart Rhythm Problems: No Cancer: Yes ("RBC cancer") Cardiovascular Problems: No High Cholesterol: No Chemotherapy: Yes (Finished October 2015) Chest Pain: No Congestive Heart Failure: No COPD: No Cerebrovascular Accident: No Diabetes: No Diminished Hearing: No Endocrine: No Gastrointestinal Disorders: Yes GERD: Yes Genitourinary: No Hiatal Hernia: No Immune Disorder: No Kidney Stones: No Musculoskeletal: No Neurologic: No Psychiatric: No Reproductive: No Respiratory: Yes (asthma) Migraines: No Radiation Therapy: No Renal Failure: No Seizures: No Sickle Cell Disease: No Sleep Apnea: No Thyroid Disease: No Ulcer: No ?: Unknown LMP: 11/12/16 : 2 Para: 1 Miscarriage: 1 : 0 Past Surgical History Abdominal Surgery: No AICD: No Arteriovenous Shunt: No Cardiac Surgery: No Ear Surgery: No Endocrine Surgery: No Eye Surgery: No Genitourinary Surgery: No Gynecologic Surgery: No Insulin Pump: No Joint Replacement: No Neurologic Surgery: No Oral Surgery: No Pacemaker: No Thoracic Surgery: No Other Surgery: No Social History Alcohol Use: No Tobacco Use: No Substance Use: No Allergies-Medications (Allergen,Severity, Reaction): Coded Allergies: No Known Allergies (Verified , 11/19/16) Reported Meds & Prescriptions Reported Meds & Active Scripts Active Robaxin (Methocarbamol) 750 Mg Tab 750 Mg PO Q8HR Ibuprofen 800 Mg Tab 800 Mg PO Q8H PRN Ferrous Sulfate 325 Mg (65 Mg Iron) Tablet 325 Mg PO BIDPC Ortho-Cyclen (Norgestimate-Ethinyl Estradiol) 0.25-35 mg-Mcg Tab 1 Tab PO DAILY Review of Systems Except as stated in HPI: all other systems reviewed are Neg Physical Exam Narrative GENERAL: Well-nourished, well-developed female in no acute distress. Afebrile. Ambulatory. Moving easily on the bed. SKIN: Focused skin assessment warm/dry. HEAD: Normocephalic. EYES: No scleral icterus. No injection or drainage. NECK: Supple, trachea midline. No JVD or lymphadenopathy. CARDIOVASCULAR: Regular rate and rhythm without murmurs, gallops, or rubs. RESPIRATORY: Breath sounds equal bilaterally. No accessory muscle use. BACK: No midline tenderness. No obvious deformity. No significant CVA tenderness. Tenderness to palpation of the right buttock. Data Data Last Documented VS Vital Signs Date Time Temp Pulse Resp B/P (MAP) Pulse Ox O2 Delivery O2 Flow Rate FiO2 03/14/17 16:47 97.5 97 16 175/80 (111) 99 Room Air Orders Orders Urinalysis - C+S If Indicated (03/14/17 17:15) Ed Urine Pregnancytest Poc (03/14/17 17:59) Ed Discharge Order (03/14/17 17:59) Labs Laboratory Tests Test 03/14/17 17:25 Urine Color LIGHT-YELLOW Urine Turbidity CLEAR Urine pH 7.0 Urine Specific [place] 1.019 Urine Protein NEG mg/dL Urine Glucose (UA) NEG mg/dL Urine Ketones NEG mg/dL Urine Occult Blood NEG Urine Nitrite NEG Urine Bilirubin NEG Urine Urobilinogen 2.0 MG/DL Urine Leukocyte Esterase MOD Urine RBC LESS THAN 1 /hpf Urine WBC 1 /hpf Urine Squamous Epithelial Cells 8 /hpf Urine Bacteria RARE /hpf Urine Mucus FEW /lpf Microscopic Urinalysis Comment CULT NOT INDICATED MDM Medical Decision Making Medical Screen Exam Complete: Yes Emergency Medical Condition: Yes Medical Record Reviewed: Yes Differential Diagnosis UTI, pyelonephritis, kidney stone, muscle strain, sciatica Narrative Course 31 year-old female presents to the emergency room for evaluation of right flank and lower back pain for the past 2 weeks. Patient denies any specific trauma or injury. No red flag symptoms. No indication for emergent imaging at this time. No urinary symptoms. ED urine test is negative. UA shows no evidence of acute infection or stone. This is muscle strain. Patient discharged with ibuprofen and Robaxin and told to follow up with the PCP or return for worsening symptoms. She understands and agrees to plan. Diagnosis Primary Impression: Low back strain Qualified Codes: S39.012A - Strain of muscle, fascia and tendon of lower back , initial encounter Referrals: Primary Care Physician Additional Instructions: Rest and drink plenty of fluids. Take Robaxin as directed, as needed for pain. Take ibuprofen with food as directed, as needed for pain. Apply ice to the affected area for 20 minutes at a time, as needed for pain and swelling. Follow-up with a primary care physician. Return to the emergency room for worsening symptoms. Med/Other Pt SpecificInfo: Prescription(s) given Scripts Methocarbamol (Robaxin) 750 Mg Tab 750 MG PO Q8HR for Muscle Spasm, #12 TAB 0 Refills Prov: Hanny Maria MD 03/14/17 Ibuprofen (Ibuprofen) 800 Mg Tab 800 MG PO Q8H Y for Pain/Inflammation, #15 TAB 0 Refills Prov: Hanny Maria MD 03/14/17 Disposition: 01 DISCHARGE HOME Condition: Stable Priscila Cohen Mar 14, 2017 17:34
[2017-03-14 17:57] LABS: BACTERIA, URINE RARE /hpf; BLOOD, URINE NEG (NEG); COMMENT (UR) CULT NOT INDICATED; CULTURE IF INDICATED CULT NOT INDICATED; GLUCOSE,URINE NEG (NEG); KETONE, URINE NEG (NEG); MUCUS URINE FEW /lpf (OCC); NITRITE,URINE NEG (NEG); SQUAMOUS EPITHELIAL CELL URINE 8 /hpf (0-5); URINE COLOR LIGHT-YELLOW (YELLW/STRAW)
[2017-03-14] MEDS ORDERED: ROBA750T PO (18:00)
[2017-03-14] MEDS ORDERED: IBUP1TAB7 PO (18:00)
== END 2017-03-14 18:14 | disposition home or self-care (01) ==
LOC: NEPK 16:44
DX: S39.012A Strain of muscle, fascia and tendon of lower back, initial encounter (principal); J45.909 Unspecified asthma, uncomplicated
CPT/HCPCS: 81001; 84703; 99283

== ENCOUNTER 2017-08-30 21:04 | Emergency (ER) | payer MEDICAID ==
[~2017-08-30] VITALS: Ht 160 cm; Wt 92.5 kg
[~2017-08-30 21:04] MED LIST changes: +IBUP1TAB7 PO; +ROBA750T PO
[2017-08-30 21:12] VITALS: BP 153/67; PULSE 78; RESP 16; TEMP 98.5; O2SAT 100
--- NOTE | 2017-08-30 22:07 | PD ---
HPI Chief Complaint: ENT Complaint Time Seen by Provider: 21:35 Travel History International Travel<30 days: No Contact w/Intl Traveler<30days: No Traveled to known affect area: No History of Present Illness HPI Patient presents to the emergency department complaining of left ear pain 1 day. She denies trauma, swimming, fever, chills, nausea, vomiting, headache, sore throat, rhinorrhea. PFSH Past Medical History Anemia: Yes Arthritis: No Asthma: Yes Autoimmune Disease: No Anxiety: No Depression: No Heart Rhythm Problems: No Cancer: Yes ("RBC cancer") Cardiovascular Problems: No High Cholesterol: No Chemotherapy: Yes (Finished October 2015) Chest Pain: No Congestive Heart Failure: No COPD: No Cerebrovascular Accident: No Diabetes: No Diminished Hearing: No Endocrine: No Gastrointestinal Disorders: Yes GERD: Yes Genitourinary: No Headaches: No Hiatal Hernia: No Heparin Induced Thrombocytopen: No Hypertension: No Immune Disorder: No Implanted Vascular Access Dvce: No Kidney Stones: No Musculoskeletal: No Neurologic: No Psychiatric: No Reproductive: No Respiratory: Yes (asthma) Migraines: No Radiation Therapy: No Renal Failure: No Seizures: No Sickle Cell Disease: No Sleep Apnea: No Thyroid Disease: No Ulcer: No Tetanus Vaccination: < 5 Years Influenza Vaccination: No ?: Not : 2 Para: 1 Miscarriage: 1 : 0 Past Surgical History Abdominal Surgery: No AICD: No Arteriovenous Shunt: No Cardiac Surgery: No Ear Surgery: No Endocrine Surgery: No Eye Surgery: No Genitourinary Surgery: No Gynecologic Surgery: No Insulin Pump: No Joint Replacement: No Neurologic Surgery: No Oral Surgery: No Pacemaker: No Thoracic Surgery: No Other Surgery: No Social History Alcohol Use: Yes ([facility]) Tobacco Use: No Substance Use: No Allergies-Medications (Allergen,Severity, Reaction): Coded Allergies: No Known Allergies (Verified Adverse Reaction, Unknown, 08/30/17) Reported Meds & Prescriptions Reported Meds & Active Scripts Active Robaxin (Methocarbamol) 750 Mg Tab 750 Mg PO Q8HR Ibuprofen 800 Mg Tab 800 Mg PO Q8H PRN Ferrous Sulfate 325 Mg (65 Mg Iron) Tablet 325 Mg PO BIDPC Ortho-Cyclen (Norgestimate-Ethinyl Estradiol) 0.25-35 mg-Mcg Tab 1 Tab PO DAILY Review of Systems Except as stated in HPI: all other systems reviewed are Neg Physical Exam Narrative GENERAL: No acute distress. SKIN: Focused skin assessment warm/dry. HEAD: Atraumatic. Normocephalic. No tender mastoid. EYES: Pupils equal and round. No scleral icterus. No injection or drainage. ENT: No nasal bleeding or discharge. Mucous membranes pink and moist. No dental caries or abscess. Normal oropharynx. No exudate. TMs clear bilaterally. NECK: Trachea midline. No JVD. CARDIOVASCULAR: Regular rate and rhythm. No murmur appreciated. RESPIRATORY: No accessory muscle use. Clear to auscultation. Breath sounds equal bilaterally. GASTROINTESTINAL: Abdomen soft, non-tender, nondistended. Hepatic and splenic margins not palpable. MUSCULOSKELETAL: No obvious deformities. No clubbing. No cyanosis. No edema. NEUROLOGICAL: Awake and alert. No obvious cranial nerve deficits. Motor grossly within normal limits. Normal speech. PSYCHIATRIC: Appropriate mood and affect; insight and judgment normal. Data Data Last Documented VS Vital Signs Date Time Temp Pulse Resp B/P (MAP) Pulse Ox O2 Delivery O2 Flow Rate FiO2 08/30/17 21:12 98.5 78 16 153/67 (95) 100 MDM Medical Decision Making Medical Screen Exam Complete: Yes Emergency Medical Condition: Yes Differential Diagnosis Otitis media, otitis externa, mastoiditis, nonspecific ear pain Narrative Course Patient presents to the emergency department complaining of left ear pain 1 day. Is afebrile, BP slightly increased at 153/67, remaining vital signs stable. On exam TMs are clear bilaterally. No indication for antibiotics. Will discharge with return instructions. Diagnosis Primary Impression: Ear pain, left Patient Instructions: Earache (ED), General Instructions Additional Instructions: 1. Pain meds as needed. 2. Return to the ER for fever, worsening ear pain, drainage from ear, headache, neck pain, or for any new/worrisome/worsening symptoms. 3. Follow-up with [facility] 24-48 hours for reexamination. Disposition: 01 DISCHARGE HOME Condition: Stable Keyonna Batista MD August 30, 2017 22:07
== END 2017-08-30 22:16 | disposition home or self-care (01) ==
LOC: PHED 21:04
DX: H92.02 Otalgia, left ear (principal); J45.909 Unspecified asthma, uncomplicated; K21.9 Gastro-esophageal reflux disease without esophagitis
CPT/HCPCS: 99281